=== PATIENT | female | born 1940 | race Caucasian/White ===

== ENCOUNTER 2017-07-14 10:30 | Emergency (ER) | payer OTHER, MEDICARE ==
[2017-07-14 11:33] LABS: Lactic Acid - Sepsis 8.4 mmol/L (0.5-2.2)
[2017-07-14 11:35] LABS: ALT (SGPT) 8 U/L (8-55); AST (SGOT) 19 U/L (5-34); Alkaline Phosphatase 113 U/L (40-150); Anion Gap 16 mmol/L (10-20); BUN (Urea Nitrogen) 7 mg/dL (9.8-20.1); Bilirubin, Total 0.9 mg/dL (0.2-1.2); Calc. Creatinine Clearance 0 mL/min (70-130); Calcium 7.9 mg/dL (7.8-10.44); Carbon Dioxide 22 mmol/L (23-31); Chloride 103 mmol/L (98-107); Estimated GFR-MDRD 60; Globulin 2.2 g/dL (2.4-3.5); Lipase Less than 4 U/L (8-78); Protein, Total 5.1 g/dL (6.0-8.3)
[2017-07-14 11:37] LABS: Hematocrit 30.2 % (36.0-47.0); Mean Platelet Volume 8.7 fL (7.4-10.4); Red Blood Cell (RBC) Count 3.19 mill/uL (4.20-5.40); White Blood Cell (WBC) Count 8.7 thou/uL (4.8-10.8)
[2017-07-14 11:39] LABS: Troponin I Less than 0.010 ng/mL (< 0.028)
[2017-07-14 11:51] LABS: Band 3 % (5-11); Burr Cells SLIGHT = 2-5 cells (100X) (0-1/hpf); Hypochromia SLIGHT = 6-15 cells (100X) (0-5/hpf); Neutrophil 88 % (42-75); Nucleated RBC 4 % (0); Polychromasia MODERATE = 3-4 cells (100X) (0-2/hpf); Target Cells SLIGHT = 2-5 cells (100X) (0-1/hpf)
[2017-07-14] MEDS ORDERED: ISOVUE-370 76%-LOCM 1 ML ONE (12:03)
--- NOTE | 2017-07-14 12:03 | RAD ---
AP VIEW OF THE CHEST: INDICATION: History of hypoglycemia currently on chemotherapy. COMPARISON: None. FINDINGS: No confluent airspace opacity or pleural effusion is evident. There is mild cardiomegaly. Pulmonary vasculature is within normal limits. No pleural effusion or pneumothorax is evident. No acute osse ous abnormality is evident. IMPRESSION: Mild cardiomegaly without evidence of additional acute abnormality. POS: [facility]
--- NOTE | 2017-07-14 12:18 | ULT ---
ULTRASOUND WITH DOPPLER DUPLEX VENOUS LOWER EXTREMITIES BILATERAL: HISTORY: 77-year-old female with bilateral lower extremity swelling. TECHNIQUE: Color flow Doppler, spectral waveform analysis of pulsed Doppler, and lebron-scale imaging with rene billy and augmentation, were used to evaluate the bilateral common femoral, femoral, popliteal, radiation therapist ior tibial, and superficial femoral, veins; and the proximal portions of the profunda femoral and gre ater saphenous, veins. FINDINGS: There is normal compressibility, demonstration of blood flow by color Doppler and pulsed Doppler, and response to augmentation, in all interrogated veins. There is minimal edema in the soft tissues of t he bilateral lower extremities. IMPRESSION: 1. No deep vein thrombosis in the bilateral lower extremities. 2. Minimal edema in the soft tissues of the bilateral lower extremities. rehan POS: [facility]
[2017-07-14 12:22] LABS: Bilirubin Negative (Negative); Blood, Urine Negative (Negative); Glucose, Urine (Dipstick) 250 mg/dL (Negative); Ketone, Urine Trace mg/dL (Negative); Nitrite Negative (Negative); Protein, Urine (Dipstick) Trace mg/dL (Neg-Trace)
[2017-07-14] MEDS ORDERED: methylPREDNISolone Sod Succ/PF 125 MG/2 ML VIAL ONE (12:55)
[2017-07-14] MEDS ORDERED: Sterile Water 10 ML ONE (12:55)
[2017-07-14] MEDS ORDERED: diphenhydrAMINE 50 MG/ML VIAL ONE ×2 (12:55→13:07)
[2017-07-14] MEDS ORDERED: Famotidine/PF 20 mg/2ml Vial ONE (12:55)
--- NOTE | 2017-07-14 14:08 | CT ---
CTA OF THE THORAX UTILIZING IV CONTRAST AND 3D REFORMATTED IMAGING: INDICATION: History of dyspnea and hyperglycemia. COMPARISON: None. FINDINGS: There are small bilateral pleural effusions. There is mild cardiomegaly. No suspicious airspace con solidation is evident. There areas of subsegmental volume loss within both lower lobes and both the right middle lobes. There are vascular calcifications involving the thoracic aorta. 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 There is an IV filte r in place. There is pneumobilia seen within the liver. The gallbladder is not visualized and is pr esumed to be surgically absent. There is scattered degenerative and osteoarthritic change. There is diffuse osteopenia. No suspicious osteolytic or osteoblastic lesion is identified. IMPRESSION: 1. No central or segmental pulmonary embolus demonstrated. 2. Small bilateral pleural effusions. 3. Mild cardiomegaly. 4. Extensive postsurgical change within the upper abdomen. POS: [facility]
== END 2017-07-14 15:20 | disposition home or self-care (01) ==
LOC: ERS 10:30
DX: E86.0 Dehydration (principal); E78.5 Hyperlipidemia, unspecified; M86.9 Osteomyelitis, unspecified; F32.9 Major depressive disorder, single episode, unspecified; Z86.73 Personal history of transient ischemic attack (TIA), and cerebral infarction without residual deficits; Z79.899 Other long term (current) drug therapy
CPT/HCPCS: 36416; 51701; 71010; 71275; 80053; 81003; 82553; 83605; 83690; 84484; 85025; 85379; 87040; 93005; 93970; 96361; 96374; 96375; A4216; A4353; J1200; J2930; S0028